=== PATIENT | male | born 1990 | race Caucasian/White ===

== ENCOUNTER 2024-10-22 21:09 | Emergency (ER) | payer BC, SELFPAY ==
[2024-10-22 21:14] VITALS: BP 116/78
[2024-10-22 21:48] LABS: % Basophils 0.4 % (0-2); % Eosinophils 0.2 % (0-6); % Immature Granulocytes 0.2 % (0-0.5); % Lymphocytes 20.7 % (20.5-51.1); % Neutrophils 72.5 % (42.2-75.2); Absolute Lymphocytes 1.2 10^3/uL (1.2-3.4); Absolute Monocytes 0.3 10^3/uL (0.1-0.6); Absolute Neutrophils 4.1 10^3/uL (1.4-6.5); Hematocrit 42.9 % (39.0-52.0); Hemoglobin 14.9 g/dL (13.0-18.0); Mean Corp Hgb Conc. 34.7 g/dL (33.0-37.0); Mean Corpuscular Hgb 31.4 pg (27.0-31.0); Mean Corpuscular Volume 90.5 fL (80.0-94.0); Mean Platelet Volume 9.6 fL (7.4-10.4); Nucleated Red Blood Cells % 0 % (-); Platelet Count 271 10^3/uL (130-400); Red Blood Cell Count 4.74 10^6/uL (4.70-6.10); Red Cell Dist. Width 12.8 % (11.5-14.5); White Blood Cell Count 5.7 10^3/uL (4.8-10.8)
[2024-10-22 22:06] LABS: ALT (SGPT) 30 U/L (0-50); AST (SGOT) 22 U/L (17-59); Alkaline Phosphatase 57 U/L (38-126); Blood Urea Nitrogen 18 mg/dl (9-20); Calcium 9.5 mg/dl (8.4-10.2); Carbon Dioxide 22 mmol/L (22-30); Chloride 108 mmol/L (98-107); Glucose 110 mg/dl (70-99); Potassium 4.5 mmol/L (3.5-5.1); Sodium 143 mmol/L (135-145); Total Bilirubin 0.5 mg/dl (0.2-1.3); Total Protein 7.5 g/dl (6.3-8.2); eGFR > 60.00
[2024-10-23 01:12] VITALS: BMI 25.3
[2024-10-23 01:14] VITALS: BP 120/72
--- NOTE | 2024-10-23 01:54 | ED.GENMED ---
History of Present Illness
General
Chief Complaint: Skin Problem
Source: patient
Exam Limitations: none
Time Seen by Provider: 10/23/24 00:59
History of Present Illness
History of Present Illness:
34-year-old male who presents with rash to the forearm. He also reports spread to his abdomen. He was working in the yard with piece of metal that was surrounded poison charu. He still [place] who suspected poison charu. Today however he started to
have redness, further up his arm is all little black perkins on forearm. States he did not have any pain or feel like he injured it. He longsleeve 1. Patient is not sure when his last tetanus shot was. He was working with [employer]
Past History
Past History
ED Past Medical History: None
ED Past Surgical History: Orthopedic
Phy Exam
Physical Exam
Physical Exam:
CONSTITUTIONAL Vital signs reviewed, Patient alert and oriented to person, place and time. Well-appearing
HEAD atraumatic, normocephalic.
EYES eyelids normal to inspection, Extraocular muscles intact, Conjunctiva normal, Sclera normal.
NECK normal range of motion, Trachea midline, no jugular venous distention.
RESP no respiratory distress
BACK No obvious deformities
UPPER EXTREMITY Gross Range of motion normal, gross motor strength normal. Redness noted to the right forearm with rash at the middle of the right forearm with a small triangular area of black skin. no FB noted. linear vesicular rash noted
consistent with poison charu. there is redness toward the elbow. no significant warmth. Scab was unroofed and no noted foreign body underneath the skin
LOWER EXTREMITY Gross range of motion normal, Gross motor strength normal
NEURO Speech normal, No focal motor deficits include, [place] coma scale 15, Memory normal, Cranial Nerves intact to screening exam.
SKIN Skin warm, dry, and normal in color.
PSYCHIATRIC Patient oriented to person place and time, Normal affect.
Course
Orders/Labs/Results
Orders:
Orders
10/22/24 21:35
Complete Blood Count/With Diff Urgent
Comprehensive Metabolic Panel Urgent
10/23/24 01:53
Cephalexin Monohydrate [Keflex] 500 mg PO NOW STA
Tetanus/Diphth/Acelpertussis [Adacel] 0.5 ml IM .ONCE ONE
Abnormal Lab Results
10/22/24
21:35
MCH 31.4 H pg
(27.0-31.0)
Chloride 108 H mmol/L
(98-107)
Glucose 110 H mg/dl
(70-99)
10/22/24 21:35
10/22/24 21:35
Vital Signs
Initial and Last Documented VS:
Initial Vital Signs
Temp Pulse Resp BP Pulse Ox
97.7 F 70 18 116/78 97
10/22/24 21:14 10/22/24 21:14 10/22/24 21:14 10/22/24 21:14 10/22/24 21:14
Last Documented Vital Signs
Temp Pulse Resp BP Pulse Ox
97.7 F 74 18 120/72 99
10/22/24 21:14 10/23/24 01:14 10/23/24 01:14 10/23/24 01:14 10/23/24 01:14
MDM/Problems Addressed
MDM/Problems Addressed:
Poison charu
*Pulse Oximetry
Patient hypoxic: no
*Critical Care Note
Total Time (30-74mins, 75-104mins- exclusive of procedures): Not Applicable
Data Reviewed
Source: patient
Prescriptions/Medications Considered But Not Given:
Considered IV antibiotics but no clinical concern. White count normal. Afebrile quite
Patient Management
Escalation/DeEscalation of care consider admission/obs:
Patient already on steroids. Given 10-day course which I think is reasonable. Will cover with Keflex to be sure but do not suspect cellulitis his white count normal afebrile and favor poison charu
ED Attending Note
-
Portions of this chart may have been created with voice recognition software.� Occasional wrong word or��sound alike� substitutions may have occurred due to the inherent limitations of voice recognition software.
Discharge Plan
Departure
Patient Disposition: Home (Routine Discharge)
Date of Disposition: 10/23/24
Time of Disposition: 01:58
Patient with high blood pressure during this ER visit?: No
Discharge Problem:
Poison charu dermatitis
Instructions: Poison Charu
Prescriptions:
New
cephalexin 500 mg capsule
500 mg PO Q8H 7 Days Qty: 21 0RF
Activity Restrictions/Additional Instructions:
Continue your steroids. Keep wound clean and dry. Topical steroids can be used. Return immediately for fevers or any other concerns.
Interventions
Interventions:
*Risk Screen - Suicide Last Done: 10/22/24 21:14
*General Assessment Last Done: 10/22/24 21:14
*Neglect/Abuse Screening Last Done: 10/22/24 21:14
*ED- Fall Risk Assessment Last Done: 10/23/24 01:12
*ED COVID-19 Vaccine History Last Done: 10/23/24 01:12
ED-Skin Assessment Last Done: 10/23/24 01:31
Discharge Date and Time
Print Language: INDONESIAN
[2024-10-23] MEDS: KEFLEX 500 MG PO (02:06)
[2024-10-23] MEDS: ADACEL 0.5 ML IM (02:07)
== END 2024-10-23 02:17 | disposition home or self-care (01) ==
LOC: EMR 21:09
PROVIDERS: Emergency Medicine; EMERGENCY PHYSICIAN Emergency Medicine
DX: L23.7 Allergic contact dermatitis due to plants, except food (principal); Z23 Encounter for immunization
CPT/HCPCS: 99283; 90471; 80053; 85025; 90715